=== PATIENT | male | born 1980 | race Caucasian/White ===

== ENCOUNTER → 2018-03-28 | Emergency (ER) | payer OTHER | END | disposition home or self-care (01) | LOC: ED 18:56 | DX: Z53.21 Procedure and treatment not carried out due to patient leaving prior to being seen by health care provider (principal) ==

== ENCOUNTER 2018-10-10 09:20 | Emergency (ER) | payer SELFPAY ==
[2018-10-10] MEDS ORDERED: Sodium Chloride 0.9% 1000 ML 1,000 ML ONE (09:33)
[2018-10-10] MEDS ORDERED: Sodium Chloride 0.9% 1000 ML 1,000 ML IV STA (09:38)
[2018-10-10] MEDS ORDERED: Phenergan 25 MG INJ IV ONE (09:38)
[2018-10-10] MEDS ORDERED: Phenergan 25 MG INJ ONE (09:40)
--- NOTE | 2018-10-10 09:41 | ERPHSYRPT ---
- History of Present Illness Time Seen by Provider: 10/10/18 09:34 Historian: patient Exam Limitations: no limitations Physician History: The patient is a 37-year-old male complaining of a sudden onset of epigastric abdominal pain, nausea, and vomiting that began this morning. When he closes his eyes, he is very dizzy. He not only has been vomiting but he has been sweating as well. He denies diarrhea. He denies chest pain. He denies shortness of breath. He is worried that he will lose his job because he was told he could not miss another day in 90 days. His past medical history is significant for vertigo and hypothyroidism. He is taking no medicines at this time. Timing/Duration: today Activities at Onset: none Quality: aching Abdominal Pain Onset Location: epigastric Pain Radiation: no radiation Severity of Pain-Max: mild Severity of Pain-Current: mild Modifying Factors: Improves With: vomiting Associated Symptoms: nausea, vomiting Previous symptoms: same symptoms as today Allergies/Adverse Reactions: No Known Drug Allergies Allergy (Verified 10/10/18 09:38) Home Medications: No Reportable Medications [No Reported Medications] 10/10/18 [History] Hx Tetanus, Diphtheria Vaccination/Date Given: Yes (UNKNOWN) Hx Influenza Vaccination/Date Given: No Hx Pneumococcal Vaccination/Date Given: No - Review of Systems Constitutional: No Fever, No Chills Eyes: No Symptoms Ears, Nose, & Throat: No Symptoms Respiratory: No Cough, No Dyspnea Cardiac: No Chest Pain, No Edema, No Syncope Abdominal/Gastrointestinal: Nausea, Vomiting Genitourinary Symptoms: No Dysuria Musculoskeletal: No Back Pain, No Neck Pain Skin: No Rash Neurological: No Dizziness, No Focal Weakness, No Sensory Changes Psychological: No Symptoms Endocrine: No Symptoms Hematologic/Lymphatic: No Symptoms Immunological/Allergic: No Symptoms All Other Systems: Reviewed and Negative - Past Medical History Pertinent Past Medical History: Yes Neurological History: No Pertinent History ENT History: No Pertinent History Cardiac History: No Pertinent History Respiratory History: No Pertinent History Endocrine Medical History: Hypothyroidism Musculoskeletal History: No Pertinent History GI Medical History: GERD History: No Pertinent History Psycho-Social History: No Pertinent History Male Reproductive Disorders: No Pertinent History - Past Surgical History Past Surgical History: No Neuro Surgical History: No Pertinent History Cardiac: No Pertinent History Respiratory: No Pertinent History Gastrointestinal: No Pertinent History Genitourinary: No Pertinent History Musculoskeletal: No Pertinent History Male Surgical History: No Pertinent History - Social History Smoking Status: Never smoker Exposure to second hand smoke: Yes Drug Use: none Patient Lives Alone: No - Nursing Vital Signs Nursing Vital Signs: Initial Vital Signs Pulse Rate 78 10/10/18 09:28 Blood Pressure 138/97 10/10/18 09:28 O2 Sat by Pulse Oximetry 98 10/10/18 09:28 Pain Scale Pain Intensity 9 - Physical Exam General Appearance: moderate distress, obese Eye Exam: PERRL/EOMI, eyes nml inspection Ears, Nose, Throat Exam: normal ENT inspection, pharynx normal, moist mucous membranes Neck Exam: normal inspection, non-tender, supple, full range of motion Respiratory Exam: normal breath sounds, lungs clear, No respiratory distress Cardiovascular Exam: regular rate/rhythm, normal heart sounds Gastrointestinal/Abdomen Exam: soft, tenderness (epigastric) Rectal Exam: not done Back Exam: normal inspection, normal range of motion, No CVA tenderness, No vertebral tenderness Extremity Exam: normal inspection, normal range of motion, pelvis stable Neurologic Exam: alert, oriented x 3, cooperative, normal mood/affect, nml cerebellar function, sensation nml, No motor deficits Skin Exam: diaphoresis SpO2 Interpretation: normal Oxygen Delivery: Room Air - Radiology Exams Chest X-ray Interpretation: Reviewed by me, Teleradiologist Report (per Dr Duncan), Negative Abdomen X-ray Interpretation: Reviewed by me, Teleradiologist Report (per Dr Duncan), Negative - CT Exams Head CT Interpretation: Negative, Tele-radiologist Report (per Dr Duncan), No/ Intracranial Hemorrhag, Other (paranasal sinus disease) Ordered Tests: Active Orders 24 hr Category Date Time Status Clean Catch Urine Specimen STAT Care 10/10/18 09:38 Active IV Insertion STAT Care 10/10/18 09:38 Active HEAD WITHOUT CONTRAST [CT] Stat Exams 10/10/18 09:40 Completed OBSTR/ACUTE ABDOMEN SERIES Stat Exams 10/10/18 09:39 Completed AMYLASE Stat Lab 10/10/18 09:47 Completed CBC W DIFF Stat Lab 10/10/18 09:47 Completed CMP Stat Lab 10/10/18 09:47 Completed LIPASE Stat Lab 10/10/18 09:47 Completed Lactic Acid Stat Lab 10/10/18 09:50 Results Manual Differential NC Stat Lab 10/10/18 09:47 Completed TROPONIN Q3H Lab 10/10/18 09:47 Completed TROPONIN Q3H Lab 10/10/18 12:45 Ordered TROPONIN Q3H Lab 10/10/18 15:45 Ordered TROPONIN Q3H Lab 10/10/18 18:45 Ordered TROPONIN Q3H Lab 10/10/18 21:45 Ordered UA W/RFX UR CULTURE Stat Lab 10/10/18 10:30 Completed Medication Summary Discontinued Medications Generic Name Dose Route Start Last Admin Trade Name Emily PRN Reason Stop Dose Admin Sodium Chloride Confirm 10/10/18 09:33 Sodium Chloride 0.9% 1000 Ml Administered 10/10/18 09:34 Dose 1,000 mls @ ud .ROUTE .STK-MED ONE Sodium Chloride 1,000 mls @ 999 mls/hr 10/10/18 09:38 10/10/18 10:53 Sodium Chloride 0.9% 1000 Ml IV 10/10/18 10:38 Infused .Q1H1M STA Infusion Promethazine HCl 25 mg 10/10/18 09:38 10/10/18 09:47 Phenergan 25 Mg Inj IV 10/10/18 09:39 25 mg STAT ONE Administration Promethazine HCl Confirm 10/10/18 09:40 Phenergan 25 Mg Inj Administered 10/10/18 09:41 Dose 25 mg .ROUTE .STK-MED ONE Lab/Rad Data: Laboratory Result Diagrams 10/10/18 09:47 10/10/18 09:47 Laboratory Results 10/10/18 10/10/18 10/10/18 Range/Units 10:30 09:50 09:47 WBC (4.0-10.5) K/mm3 RBC (4.1-5.6) M/mm3 Hgb (12.5-18.0) gm/dl Hct (42-50) % MCV (78-100) fl MCH (26-32) pg MCHC (32-36) g/dl RDW (11.5-14.0) % Plt Count (150-450) K/mm3 MPV (6-9.5) fl Segmented Neutrophils (36.-66.) % Lymphocytes (Manual) (24-44) % Monocytes (Manual) (0.0-12.0) % Eosinophils (Manual) (0.00-3.0) % Platelet Estimate (NORMAL) RBC Morphology Sodium (137-145) mmol/L Potassium (3.5-5.1) mmol/L Chloride (98-107) mmol/L Carbon Dioxide (22-30) mmol/L Anion Gap (5-15) MEQ/L BUN (9-20) mg/dL Creatinine (0.66-1.25) mg/dL Estimated GFR ML/MIN Glucose (74-106) mg/dL Lactic Acid 2.2 H (0.4-2.0) Calcium (8.4-10.2) mg/dL Total Bilirubin (0.2-1.3) mg/dL AST (17-59) U/L ALT (0-50) U/L Alkaline Phosphatase (38-126) U/L Troponin I < 0.012 (0.000-0.034) ng/mL Serum Total Protein (6.3-8.2) g/dL Albumin (3.5-5.0) g/dL Amylase (30-110) U/L Lipase (23-300) U/L Urine Color YELLOW (YELLOW) Urine Appearance SLIGHTLY CLOUDY (CLEAR) Urine pH 5.0 (5-6) Ur Specific Gillespie 1.031 (1.005-1.025) Urine Protein 100 (Negative) Urine Ketones NEGATIVE (NEGATIVE) Urine Blood NEGATIVE (0-5) Turner/ul Urine Nitrite NEGATIVE (NEGATIVE) Urine Bilirubin NEGATIVE (NEGATIVE) Urine Urobilinogen 2 (0-1) mg/dL Ur Leukocyte Esterase NEGATIVE (NEGATIVE) Urine WBC (Auto) 0-2 (0-5) /HPF Urine RBC (Auto) 0-2 (0-2) /HPF U Epithel Cells (Auto) NONE (FEW) /HPF Urine Bacteria (Auto) RARE (NEGATIVE) /HPF Urine Mucus (Auto) SLIGHT (NEGATIVE) /HPF Urine Culture Reflexed NO (NO) Urine Glucose NEGATIVE (NEGATIVE) mg/dL 10/10/18 10/10/18 Range/Units 09:47 09:47 WBC 8.8 (4.0-10.5) K/mm3 RBC 4.67 (4.1-5.6) M/mm3 Hgb 13.7 (12.5-18.0) gm/dl Hct 41.5 L (42-50) % MCV 88.9 (78-100) fl MCH 29.3 (26-32) pg MCHC 33.0 (32-36) g/dl RDW 12.5 (11.5-14.0) % Plt Count 236 (150-450) K/mm3 MPV 9.6 H (6-9.5) fl Segmented Neutrophils 73 H (36.-66.) % Lymphocytes (Manual) 22 L (24-44) % Monocytes (Manual) 4 (0.0-12.0) % Eosinophils (Manual) 1 (0.00-3.0) % Platelet Estimate NORMAL (NORMAL) RBC Morphology NORMAL Sodium 139 (137-145) mmol/L Potassium 4.1 (3.5-5.1) mmol/L Chloride 106 (98-107) mmol/L Carbon Dioxide 24 (22-30) mmol/L Anion Gap 12.3 (5-15) MEQ/L BUN 21 H (9-20) mg/dL Creatinine 0.76 (0.66-1.25) mg/dL Estimated GFR > 60.0 ML/MIN Glucose 166 H (74-106) mg/dL Lactic Acid (0.4-2.0) Calcium 8.8 (8.4-10.2) mg/dL Total Bilirubin 0.40 (0.2-1.3) mg/dL AST 32 (17-59) U/L ALT 28 (0-50) U/L Alkaline Phosphatase 75 (38-126) U/L Troponin I (0.000-0.034) ng/mL Serum Total Protein 7.5 (6.3-8.2) g/dL Albumin 4.3 (3.5-5.0) g/dL Amylase 35 (30-110) U/L Lipase 54 (23-300) U/L Urine Color (YELLOW) Urine Appearance (CLEAR) Urine pH (5-6) Ur Specific Gillespie (1.005-1.025) Urine Protein (Negative) Urine Ketones (NEGATIVE) Urine Blood (0-5) Turner/ul Urine Nitrite (NEGATIVE) Urine Bilirubin (NEGATIVE) Urine Urobilinogen (0-1) mg/dL Ur Leukocyte Esterase (NEGATIVE) Urine WBC (Auto) (0-5) /HPF Urine RBC (Auto) (0-2) /HPF U Epithel Cells (Auto) (FEW) /HPF Urine Bacteria (Auto) (NEGATIVE) /HPF Urine Mucus (Auto) (NEGATIVE) /HPF Urine Culture Reflexed (NO) Urine Glucose (NEGATIVE) mg/dL - Progress Progress: improved Progress Note: 10/10/18 11:26 improved after phenergan 25 mg and fluids by IV. Wants to go home. Counseled pt/family regarding: lab results, diagnosis, rad results - Departure Time of Disposition: 11:26 Departure Disposition: Home Clinical Impression: Vomiting, Vertigo Condition: Stable Critical Care Time: No Referrals: ROMULO HERRERA [Primary Care Provider] - Additional Instructions: You had an episode of vomiting caused by vertigo today. You were given Phenergan 25 mg and fluids by IV in the ER. Your brother has requested that I not write you any prescriptions today. He has Phenergan and Zofran at home. Take Phenergan 25 mg every 8 hours and Zofran 4 mg every 6 hours as needed for nausea and vomiting. You may also take meclazine 25 mg every 8 hrs as needed for dizziness. Begin your diet with clear liquids and advance as tolerated. All of your laboratory results and your imaging studies were normal. You have been given a work excuse for today. Follow-up with your primary medical doctor as needed.
[2018-10-10 09:53] LABS: Lactic Acid 2.2 (0.4-2.0)
[2018-10-10 09:59] LABS: Hematocrit 41.5 % (42-50); Hemoglobin 13.7 gm/dl (12.5-18.0); Mean Cell Volume 88.9 fl (78-100); Mean Corpuscular Hemoglobin 29.3 pg (26-32); Mean Platelet Volume 9.6 fl (6-9.5); Platelet Count 236 K/mm3 (150-450); Red Blood Count 4.67 M/mm3 (4.1-5.6); Red Cell Distribution Width 12.5 % (11.5-14.0); White Blood Count 8.8 K/mm3 (4.0-10.5)
[2018-10-10 10:14] LABS: Eosinophil 1 % (0.00-3.0); Lymphocytes 22 % (24-44); Monocyte 4 % (0.0-12.0); Neutrophils 73 % (36.-66.); Platelet Estimate NORMAL (NORMAL); Total Cells Counted 100
[2018-10-10 10:18] VITALS: PULSE 70
[2018-10-10 10:22] LABS: ALBUMIN 4.3 g/dL (3.5-5.0); ALKALINE PHOSPHATASE 75 U/L (38-126); AMYLASE 35 U/L (30-110); ANION GAP 12.3 MEQ/L (5-15); BLOOD UREA NITROGEN 21 mg/dL (9-20); CHLORIDE 106 mmol/L (98-107); Calcium 8.8 mg/dL (8.4-10.2); Carbon Dioxide 24 mmol/L (22-30); Creatinine 1 0.76 mg/dL (0.66-1.25); Glucose 166 mg/dL (74-106); LIPASE 54 U/L (23-300); Potassium 4.1 mmol/L (3.5-5.1); SGOT/AST 32 U/L (17-59); SGPT/ALT 28 U/L (0-50); SODIUM 139 mmol/L (137-145); Total Protein 7.5 g/dL (6.3-8.2)
--- NOTE | 2018-10-10 10:29 | XRAY ---
Indication: Dizziness. Multiple contiguous axial images obtained through the head without contrast. Comparison: None Normal appearing brain parenchyma, ventricles, and bony calvarium. Mild mucosal thickening of both ethmoid sinuses and fluid leveling in sphenoid and right maxillary sinuses. Mastoid air cells are clear. Impression: Paranasal sinus disease. No acute intracranial abnormalities. CT DI 69.11
--- NOTE | 2018-10-10 10:29 | XRAY ---
Indication: Nausea and vomiting. Comparison: None 2 views of the abdomen nonacute and nonobstructed. Solid organs and osseous structures unremarkable. Single PA chest demonstrates normal heart, lungs, and bony thorax. Impression: Negative abdomen and 1 view chest.
[2018-10-10 10:53] LABS: Appearance SLIGHTLY CLOUDY (CLEAR); Bacteria RARE /HPF (NEGATIVE); Bilirubin NEGATIVE (NEGATIVE); Blood NEGATIVE Ery/ul (0-5); Glucose NEGATIVE (NEGATIVE); Ketones NEGATIVE (NEGATIVE); Leukocyte Esterase NEGATIVE (NEGATIVE); Mucus SLIGHT /HPF (NEGATIVE); Nitrite NEGATIVE (NEGATIVE); Protein,Urine Dip 100 (Negative); RBC 0-2 /HPF (0-2); Specific Gravity 1.031 (1.005-1.025); Urobilinogen 2 mg/dL (0-1); WBC 0-2 /HPF (0-5)
[2018-10-10 11:39] VITALS: BP 138/85; O2SAT 100
== END 2018-10-10 11:39 | disposition home or self-care (01) ==
LOC: ED 09:20
DX: R11.2 Nausea with vomiting, unspecified (principal); R42 Dizziness and giddiness; R10.13 Epigastric pain
CPT/HCPCS: 36000; 36415; 70450; 74022; 80053; 81001; 82150; 83605; 83690; 84484; 85025; 96360; 96374; 99284; J2550

== ENCOUNTER 2020-02-22 17:50 | Emergency (ER) | payer OTHER ==
[2020-02-22] MEDS ORDERED: Adacel Vial IM ONE ×2 (18:25→19:09)
--- NOTE | 2020-02-22 18:25 | ERPHSYRPT ---
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 pt denies any other injury at this time. Triage Nursing Assessment: pt is aox3, pupils perrl, afebrile, resps easy and non labored, cap refill < 3 seconds, radial pulses strong and equal, pt sensation. ROM intact. skin flap noted to the right fifth finger, skin is well approximated, minimal bleeding at this time. pt skin pink warm dry. 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 neurovasc and tendon function is intact. No other injuries; Timing/Duration: today Severity: moderate Location: hands Possible Causes: other (incised wound) Associated Symptoms: denies symptoms Allergies/Adverse Reactions: No Known Drug Allergies Allergy (Verified 02/22/20 18:10) Hx Tetanus, Diphtheria Vaccination/Date Given: (unk) Hx Influenza Vaccination/Date Given: Yes Hx Pneumococcal Vaccination/Date Given: No Immunizations Up to Date: Yes Travel Risk - International Travel Have you traveled outside of the country in past 3 weeks: No Have you or anyone close to you been diagnosed with or: No Do your reside in a community with a known COVID-19 case?: Yes If Yes where:: [place] - Coronavirus Screening Has patient experienced Coronavirus symptoms: No - Review of Systems Constitutional: No Fever, No Chills Eyes: No Symptoms Ears, Nose, & Throat: No Symptoms Respiratory: No Cough, No Dyspnea Cardiac: No Chest Pain, No Edema, No Syncope Abdominal/Gastrointestinal: No Abdominal Pain, No Nausea, No Vomiting, No Diarrhea Genitourinary Symptoms: No Dysuria Musculoskeletal: No Back Pain, No Neck Pain Skin: Other (lac right 5th digit), No Rash Neurological: No Dizziness, No Focal Weakness, No Sensory Changes Psychological: No Symptoms Endocrine: No Symptoms Hematologic/Lymphatic: No Symptoms Immunological/Allergic: No Symptoms All Other Systems: Reviewed and Negative - Past Medical History Pertinent Past Medical History: Yes Neurological History: No Pertinent History ENT History: No Pertinent History Cardiac History: No Pertinent History Respiratory History: No Pertinent History Endocrine Medical History: Hypothyroidism Musculoskeletal History: No Pertinent History GI Medical History: GERD History: No Pertinent History Psycho-Social History: No Pertinent History Male Reproductive Disorders: No Pertinent History - Past Surgical History Past Surgical History: No Neuro Surgical History: No Pertinent History Cardiac: No Pertinent History Respiratory: No Pertinent History Gastrointestinal: No Pertinent History Genitourinary: No Pertinent History Musculoskeletal: No Pertinent History Male Surgical History: No Pertinent History - Social History Smoking Status: Never smoker Exposure to second hand smoke: Yes Drug Use: none Patient Lives Alone: No - Nursing Vital Signs Nursing Vital Signs: Initial Vital Signs Temperature 98 F 02/22/20 17:58 Pulse Rate 86 02/22/20 17:58 Respiratory Rate 20 02/22/20 17:58 Blood Pressure 135/94 02/22/20 17:58 O2 Sat by Pulse Oximetry 95 02/22/20 17:58 Pain Scale Pain Intensity 0 - Physical Exam General Appearance: no apparent distress, alert Eye Exam: PERRL/EOMI, eyes nml inspection Ears, Nose, Throat Exam: normal ENT inspection, pharynx normal, moist mucous membranes Neck Exam: normal inspection, non-tender, supple, full range of motion Respiratory Exam: normal breath sounds, lungs clear, No respiratory distress Cardiovascular Exam: regular rate/rhythm, normal heart sounds Gastrointestinal/Abdomen Exam: soft, mass, No tenderness Rectal Exam: deferred Back Exam: normal inspection, normal range of motion, No CVA tenderness, No vertebral tenderness Extremity Exam: normal inspection, normal range of motion, lacerations (flap lac right distal 5th) Neurologic Exam: alert, oriented x 3, cooperative, normal mood/affect, sensation nml, No motor deficits Skin Exam: normal color, warm, dry SpO2 Interpretation: normal SpO2: 95 O2 Delivery: Room Air Procedures - Laceration/Wound Repair Right Finger Wound Location: Right, hand Wound Length (cm): 3 Wound's Depth, Shape: flap Wound Explored: no foreign body noted Irrigated: Yes Hibiclens Prep: Yes Anesthesia: local, 1% Lidocaine Volume Anesthetic (ccs): 1 Wound Debrided: minimal Wound Repaired With: sutures Suture Size/Type: 4-0, prolene Number of Sutures: 4 Layer Closure?: No Sterile Dressing Applied?: Yes Splint Applied?: Yes Sling Applied?: No - Course Nursing assessment & vital signs reviewed: Yes Ordered Tests: Active Orders 24 hr Category Date Time Status Sutures STAT Care 02/22/20 18:26 Active Medication Summary Discontinued Medications Generic Name Dose Route Start Last Admin Trade Name Emily PRN Reason Stop Dose Admin Bacitracin Zinc 0.9 gm 02/22/20 19:30 02/22/20 19:31 Baciguent Packet TP 02/22/20 19:31 0.9 gm STAT ONE Administration Bacitracin Zinc Confirm 02/22/20 19:30 Baciguent Packet Administered 02/22/20 19:31 Dose 1 gm .ROUTE .STK-MED ONE Diphtheria/Tetanus/Acell Pertussis 0.5 ml 02/22/20 18:25 02/22/20 19:10 Adacel Vial IM 02/22/20 18:26 0.5 ml .ONCE ONE Administration Diphtheria/Tetanus/Acell Pertussis Confirm 02/22/20 19:09 Adacel Vial Administered 02/22/20 19:10 Dose 0.5 ml IM .STK-MED ONE Lidocaine HCl Confirm 02/22/20 19:05 Xylocaine 1% Hcl 20 Ml Mdv Administered 02/22/20 19:06 Dose 10 ml .ROUTE .STK-MED ONE - Progress Progress: improved, re-examined Progress Note: 02/22/20 19:36 pt advised that the flap will likely slough off leaving a scab, scar and sensitive defect requiring furhter skin grafting or work. Counseled pt/family regarding: diagnosis, need for follow-up - Departure Departure Disposition: Home Clinical Impression: flap laceration right 5th digit Condition: Good Critical Care Time: No Referrals: ROMULO HERRERA [Primary Care Provider] - Instructions: Wound Care (DC), Laceration Repair With Stitches (DC) Additional Instructions: this flap will likely from a scab and much of it may slough off leaving a scar which may be sensitive and require further grafting, but this will maximize the amount of usable skin by using this flap as a protective cover. stitches may be removed in one week to 10 days . return meantime if signs of infection or other concerns. also followup with your DrCasey for blood pressure. Prescriptions: Cephalexin Mh 500 mg [Keflex 500 mg] 500 mg PO TID 5 Days #15 capsule Mupirocin [Bactroban OINTMENT] 22 gm TP BID #1 tube
[2020-02-22] MEDS ORDERED: XYLOCAINE 1% HCL 20 ML MDV ONE (19:05)
[2020-02-22] MEDS ORDERED: BACIGUENT PACKET ONE (19:30)
[2020-02-22] MEDS ORDERED: BACIGUENT PACKET TP ONE (19:30)
[2020-02-22 19:37] VITALS: BP 147/95; PULSE 76
[2020-02-22 19:40] VITALS: O2SAT 95
== END 2020-02-22 19:52 | disposition home or self-care (01) ==
LOC: ED 17:50
DX: S61.216A Laceration without foreign body of right little finger without damage to nail, initial encounter (principal); W31.89XA Contact with other specified machinery, initial encounter; Y93.G9 Activity, other involving cooking and grilling; Y92.512 Supermarket, store or market as the place of occurrence of the external cause
CPT/HCPCS: 12002; 90471; 90715; 99284; A9270-GY

== ENCOUNTER 2020-10-12 13:49 | Emergency (ER) | payer MEDICAID ==
[2020-10-12] MEDS ORDERED: Zofran 4 MG/2 ML VIAL IV ONE (14:02)
[2020-10-12] MEDS ORDERED: MORPHINE SULFATE 2 MG INJ IV ONE (14:02)
[2020-10-12] MEDS ORDERED: Nitrostat 0.4 MG (ED) SL ONE (14:02)
[2020-10-12] MEDS ORDERED: BABY ASPIRIN 81 MG CHEW PO ONE (14:02)
--- NOTE | 2020-10-12 14:28 | XRAY ---
Indication: Chest pain. High blood pressure. Comparison: October 10, 2018. Portable chest now underinflated without focal infiltrate, consolidation, or large effusion. Heart is not enlarged. Bony thorax intact. Impression: Nonacute underinflated chest.
[2020-10-12 14:31] LABS: Hematocrit 42.1 % (42-50); Mean Cell Volume 84.2 fl (78-100); Mean Corpuscular Hgb Concent. 33.3 g/dl (32-36); Mean Platelet Volume 10.1 fl (7.5-11.0); Platelet Count 310 K/mm3 (150-450); Red Cell Distribution Width 13.5 % (11.5-14.0)
[2020-10-12 14:46] LABS: INR 1.05 (0.8-3.0); PROTIME 11.9 SECONDS (8.83-12.87)
--- NOTE | 2020-10-12 14:52 | ERPHSYRPT ---
- History of Present Illness Time Seen by Provider: 10/12/20 14:05 Source: patient Exam Limitations: no limitations Patient Subjective Stated Complaint: Pt c/o of having high blood pressure and has been placed on a diuretic 4 days ago and now he thinks that his potassium m ay low because he has been getting cramps, he also has pain in his right big toe and the doctor told him that he may have gout and he said that he can't afford the testing Triage Nursing Assessment: Pt was brought to the ER by his , rinku barnard, reports having anxiety over paying bills, pulses normal, skin n/w/d, states that he can't bend over to place his socks on because it causes cramps, doesn't appear to be in any distress Physician History: This is a morbidly obese 39-year-old white male has a history of hypertension and is a patient of Dr. Burns and presents to the emergency department initially with hypertension. However, he did state that he had chest pain as well. This was then clarified and he said while he has had episodes in the past but he is not having chest pain at this time. Patient was started on some blood pressure medications and he thought maybe his blood pressure was elevated because he was a little dizzy. His blood pressure at work today was 180 systolic. Again, patient denies chest pain he denies abdominal pain. He has had no flulike symptoms. He denies fevers. Timing/Duration: today Severity: mild Associated Symptoms: denies symptoms Allergies/Adverse Reactions: No Known Drug Allergies Allergy (Verified 10/12/20 14:07) Home Medications: Lisinopril 20 mg [Zestril 20 MG] 20 mg PO DAILY 10/12/20 [History] Triamterene/Hydrochlorothiazid [Triamterene-Hctz 75-50 mg Tab] 1 each PO DAILY 10/12/20 [History] Hx Tetanus, Diphtheria Vaccination/Date Given: (unk) Hx Influenza Vaccination/Date Given: Yes Hx Pneumococcal Vaccination/Date Given: No Travel Risk - International Travel Have you traveled outside of the country in past 3 weeks: No - Coronavirus Screening Are you exhibiting any of the following symptoms?: No Close contact with a COVID-19 positive Pt in past 14-21 Days: No - Review of Systems Constitutional: No Symptoms Eyes: No Symptoms Ears, Nose, & Throat: No Symptoms Respiratory: No Symptoms Cardiac: No Symptoms Abdominal/Gastrointestinal: No Symptoms Genitourinary Symptoms: No Symptoms Musculoskeletal: No Symptoms Skin: No Symptoms Neurological: No Symptoms Psychological: No Symptoms Endocrine: No Symptoms Hematologic/Lymphatic: No Symptoms Immunological/Allergic: No Symptoms All Other Systems: Reviewed and Negative - Past Medical History Pertinent Past Medical History: Yes Neurological History: No Pertinent History ENT History: No Pertinent History Cardiac History: No Pertinent History, Hypertension Respiratory History: No Pertinent History Endocrine Medical History: Hypothyroidism Musculoskeletal History: No Pertinent History GI Medical History: GERD History: No Pertinent History Psycho-Social History: No Pertinent History Male Reproductive Disorders: No Pertinent History - Past Surgical History Past Surgical History: No Neuro Surgical History: No Pertinent History Cardiac: No Pertinent History Respiratory: No Pertinent History Gastrointestinal: No Pertinent History Genitourinary: No Pertinent History Musculoskeletal: No Pertinent History Male Surgical History: No Pertinent History - Social History Smoking Status: Never smoker Exposure to second hand smoke: No Drug Use: none Patient Lives Alone: No - Nursing Vital Signs Nursing Vital Signs: Initial Vital Signs Temperature 97.8 F 10/12/20 13:54 Pulse Rate 93 H 10/12/20 13:54 Respiratory Rate 14 10/12/20 13:54 Blood Pressure 102/67 10/12/20 13:54 O2 Sat by Pulse Oximetry 94 L 10/12/20 13:54 Pain Scale Pain Intensity 7 - Physical Exam General Appearance: no apparent distress, alert, anxiety, obese Eye Exam: PERRL/EOMI, eyes nml inspection Ears, Nose, Throat Exam: normal ENT inspection, moist mucous membranes Neck Exam: normal inspection, non-tender, supple, full range of motion Respiratory Exam: normal breath sounds, lungs clear, airway intact, No chest tenderness, No respiratory distress Cardiovascular Exam: regular rate/rhythm, normal heart sounds, normal peripheral pulses Gastrointestinal/Abdomen Exam: soft, normal bowel sounds, No tenderness Rectal Exam: not done Back Exam: normal inspection, normal range of motion, No CVA tenderness, No vertebral tenderness Extremity Exam: normal inspection, normal range of motion, pelvis stable Neurologic Exam: alert, oriented x 3, cooperative, 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 There is no change from comparison EKG dated 01/25/2015.) Ordered Tests: Active Orders 24 hr Category Date Time Status Mail Weigher STAT Care 10/12/20 14:03 Active EKG-ER Only STAT Care 10/12/20 14:02 Active IV Insertion STAT Care 10/12/20 14:02 Active Pulse Oximetry (ED) STAT Care 10/12/20 14:02 Active CHEST 1 VIEW (PORTABLE) Stat Exams 10/12/20 14:02 Completed CBC W DIFF Stat Lab 10/12/20 14:02 Completed CMP Stat Lab 10/12/20 14:25 Completed D-DIMER QUANTITATIVE Stat Lab 10/12/20 14:25 Completed Manual Differential NC Stat Lab 10/12/20 14:02 Completed NT PRO BNP Stat Lab 10/12/20 14:25 Completed PROTIME WITH INR Stat Lab 10/12/20 14:25 Completed TROPONIN Q3H Lab 10/12/20 14:25 Completed TROPONIN Q3H Lab 10/12/20 17:15 Ordered TROPONIN Q3H Lab 10/12/20 20:15 Ordered TROPONIN Q3H Lab 10/12/20 23:15 Ordered TROPONIN Q3H Lab 10/13/20 02:15 Ordered Medication Summary Generic Name Dose Route Start Last Admin Trade Name Freq PRN Reason Stop Dose Admin Sodium Chloride 1,000 mls @ 999 mls/hr 10/12/20 15:17 10/12/20 15:24 Sodium Chloride 0.9% 1000 Ml IV 10/12/20 16:17 999 mls/hr .Q1H1M STA Administration Discontinued Medications Generic Name Dose Route Start Last Admin Trade Name Freq PRN Reason Stop Dose Admin Aspirin 324 mg 10/12/20 14:02 10/12/20 14:46 Baby Aspirin 81 Mg Chew PO 10/12/20 14:03 324 mg STAT ONE Administration Sodium Chloride Confirm 10/12/20 15:22 Sodium Chloride 0.9% 1000 Ml Administered 10/12/20 15:23 Dose 1,000 mls @ ud .ROUTE .STK-MED ONE Morphine Sulfate 2 mg 10/12/20 14:02 10/12/20 14:52 Morphine Sulfate 2 Mg Inj IV 10/12/20 14:03 Not Given STAT ONE Nitroglycerin 0.4 mg 10/12/20 14:02 10/12/20 14:52 Nitrostat 0.4 Mg (Ed) SL 10/12/20 14:03 Not Given STAT ONE Ondansetron HCl 4 mg 10/12/20 14:02 10/12/20 14:52 Zofran 4 Mg/2 Ml Vial IV 10/12/20 14:03 Not Given STAT ONE Lab/Rad Data: Laboratory Result Diagrams 10/12/20 14:02 10/12/20 14:25 Laboratory Results 10/12/20 10/12/20 10/12/20 Range/Units 14:25 14:25 14:25 WBC (4.0-10.5) K/mm3 RBC (4.1-5.6) M/mm3 Hgb (12.5-18.0) gm/dl Hct (42-50) % MCV (78-100) fl MCH (26-32) pg MCHC (32-36) g/dl RDW (11.5-14.0) % Plt Count (150-450) K/mm3 MPV (7.5-11.0) fl Segmented Neutrophils (36.-66.) % Lymphocytes (Manual) (24-44) % Monocytes (Manual) (0.0-12.0) % Eosinophils (Manual) (0.00-3.0) % Basophils (Manual) (0.0-1.0) % Platelet Estimate (NORMAL) RBC Morphology PT 11.9 (8.83-12.87) SECONDS INR 1.05 (0.8-3.0) D-Dimer 548 H* (215-500) ng/mL Sodium 129 L (137-145) mmol/L Potassium 5.2 H (3.5-5.1) mmol/L Chloride 96 L (98-107) mmol/L Carbon Dioxide 24 (22-30) mmol/L Anion Gap 14.1 (5-15) MEQ/L BUN 32 H (9-20) mg/dL Creatinine 0.81 (0.66-1.25) mg/dL Estimated GFR > 60.0 ML/MIN Glucose 168 H (74-106) mg/dL Calcium 9.5 (8.4-10.2) mg/dL Total Bilirubin 0.50 (0.2-1.3) mg/dL AST 67 H (17-59) U/L ALT 36 (0-50) U/L Alkaline Phosphatase 91 (38-126) U/L Troponin I < 0.012 (0.000-0.034) ng/mL NT-Pro-B Natriuret Pep 16.5 (0-450) pg/mL Serum Total Protein 8.3 H (6.3-8.2) g/dL Albumin 4.6 (3.5-5.0) g/dL 10/12/20 Range/Units 14:02 WBC 11.0 H (4.0-10.5) K/mm3 RBC 5.00 (4.1-5.6) M/mm3 Hgb 14.0 (12.5-18.0) gm/dl Hct 42.1 (42-50) % MCV 84.2 (78-100) fl MCH 28.0 (26-32) pg MCHC 33.3 (32-36) g/dl RDW 13.5 (11.5-14.0) % Plt Count 310 (150-450) K/mm3 MPV 10.1 (7.5-11.0) fl Segmented Neutrophils 68 H (36.-66.) % Lymphocytes (Manual) 19 L (24-44) % Monocytes (Manual) 9 (0.0-12.0) % Eosinophils (Manual) 3 (0.00-3.0) % Basophils (Manual) 1 (0.0-1.0) % Platelet Estimate NORMAL (NORMAL) RBC Morphology NORMAL PT (8.83-12.87) SECONDS INR (0.8-3.0) D-Dimer (215-500) ng/mL Sodium (137-145) mmol/L Potassium (3.5-5.1) mmol/L Chloride (98-107) mmol/L Carbon Dioxide (22-30) mmol/L Anion Gap (5-15) MEQ/L BUN (9-20) mg/dL Creatinine (0.66-1.25) mg/dL Estimated GFR ML/MIN Glucose (74-106) mg/dL Calcium (8.4-10.2) mg/dL Total Bilirubin (0.2-1.3) mg/dL AST (17-59) U/L ALT (0-50) U/L Alkaline Phosphatase (38-126) U/L Troponin I (0.000-0.034) ng/mL NT-Pro-B Natriuret Pep (0-450) pg/mL Serum Total Protein (6.3-8.2) g/dL Albumin (3.5-5.0) g/dL - Progress Progress: improved, re-examined Progress Note: 10/12/20 14:57 Chest x-ray shows no acute cardiopulmonary process. 10/12/20 15:20 Medical decision making: This patient's sodium is a little low and he has BUN creatinine that is slightly widened ratio suggesting possible dehydration. Therefore, I will provide him with a liter of sodium which I think will improve him clinically as well as subjectively with raising his low blood pressure a bit. His D-dimer is only slightly elevated and I do not believe he has any symptoms to suggest pulmonary emboli. He is oxygenating well and has no chest pain at this time. He is active and he has no bleeding or clotting disorders. He also has no calf pain. However, I did explain to him what an elevated D- dimer can mean and what symptoms the presence of a pulmonary embolus could give the patient. I told him that he could have a blood clot in his legs and possibly in his lungs. I told him that the pulmonary embolus in the lungs could cause . Patient stated that he understood. He states that he does not have any calf pain shortness of breath or chest pain and he refuses the CAT scan of the chest with contrast. He will sign a refusal of test/treatment form. 10/12/20 15:38 Counseled pt/family regarding: lab results, diagnosis, need for follow-up, rad results - Departure Departure Disposition: Home Clinical Impression: Dizziness, Hypertension Condition: Stable Critical Care Time: No Referrals: ROMULO BURNS [Primary Care Provider] - Additional Instructions: Drink plenty of fluids. Take your medication as prescribed. Monitor your blood pressure 3 times a day and keep a daily log for the next 48 to 72 hours. Pro vide your log of blood pressure readings to your primary care physician for further management. Return to the emergency department if symptoms recur. Forms: Work/School Release Form
[2020-10-12 15:08] LABS: ALBUMIN 4.6 g/dL (3.5-5.0); ALKALINE PHOSPHATASE 91 U/L (38-126); ANION GAP 14.1 MEQ/L (5-15); BLOOD UREA NITROGEN 32 mg/dL (9-20); CHLORIDE 96 mmol/L (98-107); Calcium 9.5 mg/dL (8.4-10.2); Carbon Dioxide 24 mmol/L (22-30); Creatinine 1 0.81 mg/dL (0.66-1.25); EST GLOMERULAR FILTRATION RATE > 60.0 ML/MIN; Glucose 168 mg/dL (74-106); NT PRO BNP 16.5 pg/mL (0-450); Potassium 5.2 mmol/L (3.5-5.1); SGOT/AST 67 U/L (17-59); SGPT/ALT 36 U/L (0-50); SODIUM 129 mmol/L (137-145); Total Protein 8.3 g/dL (6.3-8.2)
[2020-10-12] MEDS ORDERED: Sodium Chloride 0.9% 1000 ML 1,000 ML IV STA (15:17)
[2020-10-12] MEDS ORDERED: Sodium Chloride 0.9% 1000 ML 1,000 ML ONE (15:22)
[2020-10-12 15:28] LABS: Basophil 1 % (0.0-1.0); Eosinophil 3 % (0.00-3.0); Lymphocytes 19 % (24-44); Monocyte 9 % (0.0-12.0); Neutrophils 68 % (36.-66.); Total Cells Counted 100
[2020-10-12 15:29] LABS: Platelet Estimate NORMAL (NORMAL)
[2020-10-12 16:09] VITALS: BP 107/74; PULSE 83; O2SAT 94
== END 2020-10-12 16:42 | disposition home or self-care (01) ==
LOC: ED 13:49
DX: R42 Dizziness and giddiness (principal); I10 Essential (primary) hypertension; Z79.899 Other long term (current) drug therapy
CPT/HCPCS: 36415; 71045; 80053; 83880; 84484; 85025; 85379; 85610; 93005; 93041; 94760; 96360; 99284; A9270-GY

== ENCOUNTER 2023-04-13 06:57 | Emergency (ER) | payer OTHER ==
[2023-04-13] MEDS ORDERED: BABY ASPIRIN 81 MG CHEW PO ONE (06:59)
[2023-04-13] MEDS ORDERED: SUBLIMAZE 100 MCG/2 ML IV ONE ×2 (06:59→08:03)
[2023-04-13] MEDS ORDERED: Sodium Chloride 0.9% 1000 ML 1,000 ML IV SCH (07:00)
[2023-04-13] MEDS ORDERED: SUBLIMAZE 100 MCG/2 ML ONE ×2 (07:14→08:05)
[2023-04-13] MEDS ORDERED: Sodium Chloride 0.9% 1000 ML 1,000 ML ONE (07:14)
[2023-04-13] MEDS ORDERED: BABY ASPIRIN 81 MG CHEW ONE (07:15)
[2023-04-13 07:17] LABS: Absolute Neutrophil Ct (ANC) 5.57 x10^3/uL (1.4-6.9); BASOPHIL % 0.7 % (0.0-0.4); Basophil (Absolute #) 0.06 x10^3/uL (0-0.4); Eosinophil (Absolute #) 0.26 x10^3/uL (0-0.5); Hemoglobin 12.1 g/dL (12.5-18.0); IMMATURE GRAN # 0.09 x10^3u/L (0.00-0.03); Lymphocyte (Absolute #) 1.97 x10^3/uL (1.0-4.6); Lymphocytes % 22.6 % (24.0-44.0); Mean Cell Volume 88.2 fL (78-100); Mean Corpuscular Hemoglobin 28.1 pg (26-32); Mean Corpuscular Hgb Concent. 31.8 g/dL (32-36); Mean Platelet Volume 9.4 fL (7.5-11.0); Monocyte (Absolute #) 0.76 x10^3/uL (0.0-1.3); Monocytes % 8.7 % (0.0-12.0); Platelet Count 239 x10^3/uL (150-450); Red Blood Count 4.31 x10^6/uL (4.1-5.6); White Blood Count 8.7 x10^3/uL (4.0-10.5)
[2023-04-13 07:34] LABS: ALBUMIN 4.1 g/dL (3.5-5.0); ALKALINE PHOSPHATASE 74 U/L (38-126); AMYLASE 52 U/L (30-110); ANION GAP 14.4 MEQ/L (5-15); BLOOD UREA NITROGEN 23 mg/dL (9-20); CHLORIDE 101 mmol/L (98-107); Calcium 9.1 mg/dL (8.4-10.2); Carbon Dioxide 24 mmol/L (22-30); Creatinine 1 0.94 mg/dL (0.66-1.25); EST GLOMERULAR FILTRATION RATE > 60.0 ML/MIN; Glucose 124 mg/dL (74-106); LIPASE 193 U/L (23-300); Potassium 5.1 mmol/L (3.5-5.1); SGOT/AST 45 U/L (17-59); SGPT/ALT 32 U/L (0-50); SODIUM 134 mmol/L (137-145); Total Protein 7.6 g/dL (6.3-8.2)
--- NOTE | 2023-04-13 07:39 | ERPHSYRPT ---
- History of Present Illness Time Seen by Provider: 04/13/23 07:00 Historian: patient Exam Limitations: no limitations Patient Subjective Stated Complaint: Chest pain- Left arm numbness Triage Nursing Assessment: Patient ambulated back to ED and transferred self to bed. Patient A+O X 3. Patient's skin pink, warm and dry. Patient complains of chest pain and left arm numbness that started while he was working at 0515 am. Patient denies N/V. Physician History: Patient is a 42-year-old white male who presents with a complaint of left anterior chest pain associated with paresthesias and tingling in the left arm which started at 515 this morning at work. He got a little bit sweaty he describes the discomfort as a tightness he has had some nausea but no vomiting. His risk factors include hypertension family history and cholesterolemia. 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 Left anterior chest pain left) Quality: tightness Location: other Chest Pain Radiation: arm Severity of Pain-Max: moderate Severity of Pain-Current: moderate Associated Symptoms: nausea, diaphoresis Prior Chest Pain/Cardiac Workup: no prior chest pain Nitro Today/Relief: no nitro taken today Aspirin Treatment Today: 325 mg x 1 Allergies/Adverse Reactions: shellfish derived Allergy (Verified 04/13/23 07:05) Patient states face swelling Home Medications: Lisinopril 20 mg [Zestril 20 MG] 20 mg PO DAILY 10/12/20 [History] Triamterene/Hydrochlorothiazid [Triamterene-Hctz 75-50 mg Tab] 1 each PO DAILY 10/12/20 [History] Hx Tetanus, Diphtheria Vaccination/Date Given: (unk) Hx Influenza Vaccination/Date Given: Yes Hx Pneumococcal Vaccination/Date Given: No Immunizations Up to Date: Yes Travel Risk - International Travel Have you traveled outside of the country in past 3 weeks: No - Coronavirus Screening Are you exhibiting any of the following symptoms?: No Close contact with a COVID-19 positive Pt in past 14-21 Days: No - Vaccine Status Have you recieved a Covid-19 vaccination: Yes 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 - Vaccination Dates Dates if Unknown: na - Review of Systems Constitutional: No Fever, No Chills Eyes: No Symptoms Ears, Nose, & Throat: No Symptoms Respiratory: No Cough, No Dyspnea Cardiac: No Chest Pain, No Edema, No Syncope Abdominal/Gastrointestinal: No Abdominal Pain, No Nausea, No Vomiting, No Diarrhea Genitourinary Symptoms: No Dysuria Musculoskeletal: No Back Pain, No Neck Pain Skin: No Rash Neurological: No Dizziness, No Focal Weakness, No Sensory Changes Psychological: No Symptoms Endocrine: No Symptoms All Other Systems: Reviewed and Negative - Past Medical History Pertinent Past Medical History: Yes Neurological History: No Pertinent History ENT History: No Pertinent History Cardiac History: No Pertinent History, Hypertension Respiratory History: No Pertinent History Endocrine Medical History: Hypothyroidism Musculoskeletal History: No Pertinent History GI Medical History: GERD History: No Pertinent History Psycho-Social History: No Pertinent History Male Reproductive Disorders: No Pertinent History - Past Surgical History Past Surgical History: No Neuro Surgical History: No Pertinent History Cardiac: No Pertinent History Respiratory: No Pertinent History Gastrointestinal: No Pertinent History Genitourinary: No Pertinent History Musculoskeletal: No Pertinent History Male Surgical History: No Pertinent History - Social History Smoking Status: Never smoker Exposure to second hand smoke: No Drug Use: none Patient Lives Alone: No - Nursing Vital Signs Nursing Vital Signs: Initial Vital Signs Pulse Rate 82 04/13/23 07:00 Respiratory Rate 11 L 04/13/23 07:00 Blood Pressure 135/94 04/13/23 07:00 O2 Sat by Pulse Oximetry 99 04/13/23 07:00 Pain Scale Pain Intensity 0 - Physical Exam General Appearance: moderate distress, alert Eye Exam: PERRL/EOMI, eyes nml inspection Ears, Nose, Throat Exam: normal ENT inspection, moist mucous membranes Neck Exam: normal inspection, non-tender, supple, full range of motion Respiratory Exam: normal breath sounds, lungs clear, No respiratory distress Cardiovascular Exam: regular rate/rhythm, normal heart sounds Gastrointestinal/Abdomen Exam: soft, No tenderness, No mass Back Exam: normal inspection, No CVA tenderness, No vertebral tenderness Extremity Exam: normal inspection, normal range of motion Neurologic Exam: alert, oriented x 3, cooperative, normal mood/affect, sensation nml, No motor deficits Skin Exam: normal color, warm, dry SpO2: 98 - Course Nursing assessment & vital signs reviewed: Yes EKG Interpreted by Me: RATE (82), Sinus Rhythm, NORMAL AXIS, NORMAL INTERVALS, NORMAL QRS, NORMAL ST-T - Radiology Exams Chest X-ray Interpretation: Reviewed by me, Negative Ordered Tests: Active Orders 24 hr Category Date Time Status EKG-ER Only STAT Care 04/13/23 06:59 Active IV Insertion STAT Care 04/13/23 06:59 Active CHEST 1 VIEW (PORTABLE) Stat Exams 04/13/23 07:00 Completed AMYLASE Stat Lab 04/13/23 07:12 Completed CBC W DIFF Stat Lab 04/13/23 07:12 Completed CMP Stat Lab 04/13/23 07:12 Completed D-DIMER QUANTITATIVE Stat Lab 04/13/23 07:12 Completed LIPASE Stat Lab 04/13/23 07:12 Completed Lactic Acid Stat Lab 04/13/23 07:12 Completed NT PRO BNPII Stat Lab 04/13/23 07:12 Completed TROPONIN Q4H Lab 04/13/23 07:12 Completed TROPONIN Q4H Lab 04/13/23 09:20 Completed TROPONIN Q4H Lab 04/13/23 13:30 Ordered TROPONIN Q4H Lab 04/13/23 17:30 Ordered TROPONIN Q4H Lab 04/13/23 21:30 Ordered UA W/RFX UR CULTURE Stat Lab 04/13/23 07:17 Completed Urine Triage Profile Stat Lab 04/13/23 07:17 Completed Medication Summary Generic Name Dose Route Start Last Admin Trade Name Freq PRN Reason Stop Dose Admin Sodium Chloride 1,000 mls @ 100 mls/hr 04/13/23 07:00 04/13/23 07:17 Sodium Chloride 0.9% 1000 Ml IV 05/13/23 06:59 100 mls/hr .Q10H DAVID Administration Discontinued Medications Generic Name Dose Route Start Last Admin Trade Name Freq PRN Reason Stop Dose Admin Aspirin 324 mg 04/13/23 06:59 04/13/23 07:17 Aspirin 81 Mg Tab.Chew PO 04/13/23 07:00 324 mg STAT ONE Administration Aspirin Confirm 04/13/23 07:15 Aspirin 81 Mg Tab.Chew Administered 04/13/23 07:16 Dose 324 mg .ROUTE .STK-MED ONE Fentanyl Citrate 50 mcg 04/13/23 06:59 04/13/23 07:21 Fentanyl Citrate 100 Mcg/2 Ml* Vial IV 04/13/23 07:00 50 mcg STAT ONE Administration Fentanyl Citrate Confirm 04/13/23 07:14 Fentanyl Citrate 100 Mcg/2 Ml* Vial Administered 04/13/23 07:15 Dose 100 mcg .ROUTE .STK-MED ONE Fentanyl Citrate 50 mcg 04/13/23 08:03 04/13/23 08:06 Fentanyl Citrate 100 Mcg/2 Ml* Vial IV 04/13/23 08:04 50 mcg STAT ONE Administration Fentanyl Citrate Confirm 04/13/23 08:05 Fentanyl Citrate 100 Mcg/2 Ml* Vial Administered 04/13/23 08:06 Dose 100 mcg .ROUTE .STK-MED ONE Lab/Rad Data: Laboratory Result Diagrams 04/13/23 07:12 04/13/23 07:12 Laboratory Results 04/13/23 04/13/23 04/13/23 Range/Units 09:20 07:17 07:17 WBC (4.0-10.5) x10^3/uL RBC (4.1-5.6) x10^6/uL Hgb (12.5-18.0) g/dL Hct (42-50) % MCV (78-100) fL MCH (26-32) pg MCHC (32-36) g/dL RDW (11.5-14.0) % Plt Count (150-450) x10^3/uL MPV (7.5-11.0) fL Gran % (36.0-66.0) % Immature Gran % (Auto) (0.00-0.4) % Nucleat RBC Rel Count (0.00-0.1) % Eos # (Auto) (0-0.5) x10^3/uL Immature Gran # (Auto) (0.00-0.03) x10^3u/L Absolute Lymphs (auto) (1.0-4.6) x10^3/uL Absolute Monos (auto) (0.0-1.3) x10^3/uL Absolute Nucleated RBC (0.00-0.01) x10^3u/L Lymphocytes % (24.0-44.0) % Monocytes % (0.0-12.0) % Eosinophils % (0.00-5.0) % Basophils % (0.0-0.4) % Absolute Granulocytes (1.4-6.9) x10^3/uL Basophils # (0-0.4) x10^3/uL D-Dimer (0.0-0.50) mg/L Sodium (137-145) mmol/L Potassium (3.5-5.1) mmol/L Chloride (98-107) mmol/L Carbon Dioxide (22-30) mmol/L Anion Gap (5-15) MEQ/L BUN (9-20) mg/dL Creatinine (0.66-1.25) mg/dL Estimated GFR ML/MIN Glucose (74-106) mg/dL Lactic Acid (0.4-2.0) Calcium (8.4-10.2) mg/dL Total Bilirubin (0.2-1.3) mg/dL AST (17-59) U/L ALT (0-50) U/L Alkaline Phosphatase (38-126) U/L Troponin I < 0.012 (0.000-0.034) ng/mL NT-Pro-B Natriuret Pep (<300) pg/mL Serum Total Protein (6.3-8.2) g/dL Albumin (3.5-5.0) g/dL Amylase (30-110) U/L Lipase (23-300) U/L Urine Color Yellow (Yellow) Urine Appearance Clear (Clear) Urine pH 6.0 (4.6-8.0) Ur Specific [place] 1.015 (1.005-1.030) Urine Protein Negative (Negative) Urine Glucose (UA) Negative (Negative) mg/dL Urine Ketones Negative (Negative) Urine Blood Negative (Negative) Urine Nitrite Negative (Negative) Urine Bilirubin Negative (Negative) Urine Urobilinogen 0.2 (0.2) mg/dL Ur Leukocyte Esterase Negative (Negative) U Hyaline Cast (Auto) NONE SEEN (0-2) /LPF Urine Microscopic RBC 0-2 (0-5) /HPF Urine Microscopic WBC 0-2 (0-5) /HPF Ur Epithelial Cells None Seen (None Seen) /HPF Urine Bacteria None Seen (None Seen) /HPF Urine Culture Reflexed NO (NO) Urine Opiates Level NEGATIVE (NEGATIVE) Ur Methadone NEGATIVE (NEGATIVE) Urine Barbiturates NEGATIVE (NEGATIVE) Ur Phencyclidine (PCP) NEGATIVE (NEGATIVE) Urine Amphetamine NEGATIVE (NEGATIVE) U Benzodiazepine Level NEGATIVE (NEGATIVE) Urine Cocaine NEGATIVE (NEGATIVE) Urine Marijuana (THC) NEGATIVE (NEGATIVE) 04/13/23 04/13/23 04/13/23 Range/Units 07:12 07:12 07:12 WBC (4.0-10.5) x10^3/uL RBC (4.1-5.6) x10^6/uL Hgb (12.5-18.0) g/dL Hct (42-50) % MCV (78-100) fL MCH (26-32) pg MCHC (32-36) g/dL RDW (11.5-14.0) % Plt Count (150-450) x10^3/uL MPV (7.5-11.0) fL Gran % (36.0-66.0) % Immature Gran % (Auto) (0.00-0.4) % Nucleat RBC Rel Count (0.00-0.1) % Eos # (Auto) (0-0.5) x10^3/uL Immature Gran # (Auto) (0.00-0.03) x10^3u/L Absolute Lymphs (auto) (1.0-4.6) x10^3/uL Absolute Monos (auto) (0.0-1.3) x10^3/uL Absolute Nucleated RBC (0.00-0.01) x10^3u/L Lymphocytes % (24.0-44.0) % Monocytes % (0.0-12.0) % Eosinophils % (0.00-5.0) % Basophils % (0.0-0.4) % Absolute Granulocytes (1.4-6.9) x10^3/uL Basophils # (0-0.4) x10^3/uL D-Dimer 0.40 (0.0-0.50) mg/L Sodium (137-145) mmol/L Potassium (3.5-5.1) mmol/L Chloride (98-107) mmol/L Carbon Dioxide (22-30) mmol/L Anion Gap (5-15) MEQ/L BUN (9-20) mg/dL Creatinine (0.66-1.25) mg/dL Estimated GFR ML/MIN Glucose (74-106) mg/dL Lactic Acid (0.4-2.0) Calcium (8.4-10.2) mg/dL Total Bilirubin (0.2-1.3) mg/dL AST (17-59) U/L ALT (0-50) U/L Alkaline Phosphatase (38-126) U/L Troponin I < 0.012 (0.000-0.034) ng/mL NT-Pro-B Natriuret Pep 128 (<300) pg/mL Serum Total Protein (6.3-8.2) g/dL Albumin (3.5-5.0) g/dL Amylase (30-110) U/L Lipase (23-300) U/L Urine Color (Yellow) Urine Appearance (Clear) Urine pH (4.6-8.0) Ur Specific [place] (1.005-1.030) Urine Protein (Negative) Urine Glucose (UA) (Negative) mg/dL Urine Ketones (Negative) Urine Blood (Negative) Urine Nitrite (Negative) Urine Bilirubin (Negative) Urine Urobilinogen (0.2) mg/dL Ur Leukocyte Esterase (Negative) U Hyaline Cast (Auto) (0-2) /LPF Urine Microscopic RBC (0-5) /HPF Urine Microscopic WBC (0-5) /HPF Ur Epithelial Cells (None Seen) /HPF Urine Bacteria (None Seen) /HPF Urine Culture Reflexed (NO) Urine Opiates Level (NEGATIVE) Ur Methadone (NEGATIVE) Urine Barbiturates (NEGATIVE) Ur Phencyclidine (PCP) (NEGATIVE) Urine Amphetamine (NEGATIVE) U Benzodiazepine Level (NEGATIVE) Urine Cocaine (NEGATIVE) Urine Marijuana (THC) (NEGATIVE) 04/13/23 04/13/23 04/13/23 Range/Units 07:12 07:12 07:12 WBC 8.7 (4.0-10.5) x10^3/uL RBC 4.31 (4.1-5.6) x10^6/uL Hgb 12.1 L (12.5-18.0) g/dL Hct 38.0 L (42-50) % MCV 88.2 (78-100) fL MCH 28.1 (26-32) pg MCHC 31.8 L (32-36) g/dL RDW 13.0 (11.5-14.0) % Plt Count 239 (150-450) x10^3/uL MPV 9.4 (7.5-11.0) fL Gran % 64.0 (36.0-66.0) % Immature Gran % (Auto) 1.0 H (0.00-0.4) % Nucleat RBC Rel Count 0.0 (0.00-0.1) % Eos # (Auto) 0.26 (0-0.5) x10^3/uL Immature Gran # (Auto) 0.09 H (0.00-0.03) x10^3u/L Absolute Lymphs (auto) 1.97 (1.0-4.6) x10^3/uL Absolute Monos (auto) 0.76 (0.0-1.3) x10^3/uL Absolute Nucleated RBC 0.00 (0.00-0.01) x10^3u/L Lymphocytes % 22.6 L (24.0-44.0) % Monocytes % 8.7 (0.0-12.0) % Eosinophils % 3.0 (0.00-5.0) % Basophils % 0.7 (0.0-0.4) % Absolute Granulocytes 5.57 (1.4-6.9) x10^3/uL Basophils # 0.06 (0-0.4) x10^3/uL D-Dimer (0.0-0.50) mg/L Sodium 134 L (137-145) mmol/L Potassium 5.1 (3.5-5.1) mmol/L Chloride 101 (98-107) mmol/L Carbon Dioxide 24 (22-30) mmol/L Anion Gap 14.4 (5-15) MEQ/L BUN 23 H (9-20) mg/dL Creatinine 0.94 (0.66-1.25) mg/dL Estimated GFR > 60.0 ML/MIN Glucose 124 H (74-106) mg/dL Lactic Acid 1.3 (0.4-2.0) Calcium 9.1 (8.4-10.2) mg/dL Total Bilirubin 0.50 (0.2-1.3) mg/dL AST 45 (17-59) U/L ALT 32 (0-50) U/L Alkaline Phosphatase 74 (38-126) U/L Troponin I (0.000-0.034) ng/mL NT-Pro-B Natriuret Pep (<300) pg/mL Serum Total Protein 7.6 (6.3-8.2) g/dL Albumin 4.1 (3.5-5.0) g/dL Amylase 52 (30-110) U/L Lipase 193 (23-300) U/L Urine Color (Yellow) Urine Appearance (Clear) Urine pH (4.6-8.0) Ur Specific [place] (1.005-1.030) Urine Protein (Negative) Urine Glucose (UA) (Negative) mg/dL Urine Ketones (Negative) Urine Blood (Negative) Urine Nitrite (Negative) Urine Bilirubin (Negative) Urine Urobilinogen (0.2) mg/dL Ur Leukocyte Esterase (Negative) U Hyaline Cast (Auto) (0-2) /LPF Urine Microscopic RBC (0-5) /HPF Urine Microscopic WBC (0-5) /HPF Ur Epithelial Cells (None Seen) /HPF Urine Bacteria (None Seen) /HPF Urine Culture Reflexed (NO) Urine Opiates Level (NEGATIVE) Ur Methadone (NEGATIVE) Urine Barbiturates (NEGATIVE) Ur Phencyclidine (PCP) (NEGATIVE) Urine Amphetamine (NEGATIVE) U Benzodiazepine Level (NEGATIVE) Urine Cocaine (NEGATIVE) Urine Marijuana (THC) (NEGATIVE) - Progress Progress: improved Air Movement: good Blood Culture(s) Obtained: No Antibiotics given: No Medical Desision Making - Diagnostic Testing Diagnostic test were ordered, analyzed, and reviewed by me: Yes Radiological Interpretation: Reviewed by me, Teleradiologist Report - Risk of complications Low Risk: Low risk of morbidity from additional dx testing or treatment - Departure Departure Disposition: Home Clinical Impression: Pleurisy Condition: Stable Critical Care Time: No Referrals: ROMULO HERRERA [Primary Care Provider] - Follow up/PCP as directed Instructions: Pleuritic Chest Pain (DC) Forms: Work/School Release Form Prescriptions: Diclofenac Sodium 50 mg [Voltaren 50 mg] 50 mg PO TID 7 Days #21 tablet
[2023-04-13 07:43] LABS: Appearance Clear (Clear); Bacteria None Seen /HPF (None Seen); Bilirubin Negative (Negative); Blood Negative (Negative); Epithelial Cells None Seen /HPF (None Seen); Glucose, Urine Negative (Negative); Hyaline Casts NONE SEEN /LPF (0-2); Ketones Negative (Negative); Leukocyte Esterase Negative (Negative); Nitrite Negative (Negative); Protein,Urine Dip Negative (Negative); RBC 0-2 /HPF (0-5); Specific Gravity 1.015 (1.005-1.030); Urobilinogen 0.2 mg/dL (0.2); WBC 0-2 /HPF (0-5)
[2023-04-13 07:49] LABS: ADD URINE CULTURE? NO (NO)
[2023-04-13 07:56] LABS: Amphetamine,Urine NEGATIVE (NEGATIVE); Barbiturate,Urine NEGATIVE (NEGATIVE); Benzodiazepine,Urine NEGATIVE (NEGATIVE); Cocaine,Urine NEGATIVE (NEGATIVE); Methadone,Urine NEGATIVE (NEGATIVE); Opiate,Urine NEGATIVE (NEGATIVE); PCP,Urine NEGATIVE (NEGATIVE); THC,Urine NEGATIVE (NEGATIVE)
--- NOTE | 2023-04-13 09:08 | XRAY ---
Indication: Chest pain. Comparison: October 12, 2020 Portable chest remains clear. Heart and mediastinal structures within normal limits. Bony thorax intact. No new/acute findings.
[2023-04-13 10:09] VITALS: BP 98/69
[2023-04-13 10:11] VITALS: PULSE 75
[2023-04-13 10:26] VITALS: O2SAT 98
== END 2023-04-13 10:37 | disposition home or self-care (01) ==
LOC: ED 06:57
DX: R09.1 Pleurisy (principal); R20.2 Paresthesia of skin; R11.0 Nausea; I10 Essential (primary) hypertension; Z79.899 Other long term (current) drug therapy
CPT/HCPCS: 36000; 36415; 71045; 80053; 80307; 81001; 82150; 83605; 83690; 83880; 84484; 85025; 85379; 93005; 96374; 96376; 99284; J3010; A9270-GY